=== PATIENT | female | born 1980 | race Caucasian/White ===

== ENCOUNTER 2022-07-21 09:31 | Outpatient (CLI) | payer BC | END 2022-07-21 09:32 | disposition home or self-care (01) | LOC: BICRAD 09:31 | PROVIDERS: ATTEND Nurse Practitioner Family | DX: M25.551 Pain in right hip (principal) | CPT/HCPCS: 72170 ==

== ENCOUNTER 2023-02-16 08:08 | Outpatient (CLI) | payer BC | END 2023-02-16 08:09 | disposition home or self-care (01) | LOC: SCSMRI 08:08 | PROVIDERS: ATTEND Neurological Surgery | DX: M51.26 Other intervertebral disc displacement, lumbar region (principal); M51.36 Other intervertebral disc degeneration, lumbar region; M48.061 Spinal stenosis, lumbar region without neurogenic claudication; M47.816 Spondylosis without myelopathy or radiculopathy, lumbar region; Q05.7 Lumbar spina bifida without hydrocephalus | CPT/HCPCS: 72110; 72148 ==